=== PATIENT | female | born 1925 | race Caucasian/White ===

== ENCOUNTER 2017-02-06 08:44 | Observation (INO) | payer MEDICARE, BC ==
[~2017-02-06] VITALS: Ht 160 cm; Wt 63.1 kg
[~2017-02-06 08:44] MED LIST: ASPIRIN 325MG325 MG PO; ASPIRIN 81MG TA81 MG PO; CHEWABLE ASPIRI81 MG PO; CIPRO 500MG TA500 MG PO; CITALOPRAM HYDR10 MG PO; ESTRACE0.1 MG/GM VG; FERROUS GLUCON324 MG PO; FISH OIL1000 MG PO; FORTEO250 MCG/ML SC; GABAPENTIN100 M1 PO; GABAPENTIN100 MG PO; GABAPENTIN300 MG PO; HCTZ/TRIAMTEREN1 CAP PO; HYDROCHLOROTH12.5 M1 PO; HYDROCHLOROTHIA1 TA4 PO; HYDROCHLOROTHIA25 M1 PO; HYOSCYAMINE0.125 M1 SL; IMDUR 60MG. TAB60 MG PO; ISOSORBIDE MONO30 MG PO; LEVOFLOXACIN500 MG PO; LISINOPRIL5 MG PO; LOPRESSOR 25MG.25 M1 OR; LOPRESSOR 50 MG50 MG PO; MACRODANTIN100 MG PO; MAG-OX 400MG T400 MG PO; MAXZIDE 25 MG-31 TA1 PO; MAXZIDE 50 MG-71 TAB PO; METOLAZONE 2.52.5 MG PO; METOLAZONE2.5 MG PO; METOPROLOL 25 M25 MG PO; METOPROLOL25 MG PO; MORPHINE PUMP IP; NITROSTAT 0.4M0.4 MG SL; OMEGA-31000 MG PO; OMEPRAZOLE20 MG PO; ONDANSETRON 4MG4 M1 PO; ONDANSETRON HYDR4 MG PO; OXAZEPAM 10MG C10 MG PO; Oxycodone5 MG PO; PLAVIX75 MG PO; PREDNISONE 10MG10 MG PO; PREMARIN VAGINA VG; PROMETHAZINE HC25 M1 PO; SIMVASTATIN20 MG PO; TRANSDERM0.33 MG/24 TD; ZOFRAN ODT4 MG PO
[2017-02-06 08:45] VITALS: BP 150/68
--- NOTE | 2017-02-06 08:57 | Emergency Room Report ---
See Addendum History of Present Illness Time Seen by MD Talbot Presenting Problem in Triage Pt arrived:Ambulance Stretcher Presenting Problem:CHEST PAIN THIS MORNING WHILE [place] [facility] Onset of symptoms date/time:/ or onset unknown for:MEDICAL HX UNKNOWN Treatment Prior to Arrival: SL,ASA 324MG,12 LEAD ECG DEVELOPMENT TECHNICAL LEAD Provided by:EMS Sepsis Risk Assessment: Temp: 98.1 B/P: 150/68 MAP: 95 Pulse: 56 Resp: 20 Recent fever? N Clinical Suspician of Infection? N Mental Status: 1 - Regular (Normal Baseline) Sepsis Risk:Low Sepsis Risk Have you (or family members/close friends) recently traveled outside the [place]? N If Yes, where/when: Have you had exposure to infectious disease within the past month? TB? Other? Specify: Patient states she has chest pain onset this morning at retirement does not radiate anywhere she just describes it as a pain moderate in severity. She denies any cough denies any nausea or shortness of breath. She is wearing a neck collar she states she recently injured her neck. Denies any abdominal pain ALLERGIES Coded Allergies: egg (From EGGS (FOOD/DRUG)) (Intermediate, NA-NAUSEA 02/06/17) cephalexin (From KEFLEX) (02/06/17) codeine (02/06/17) soy (02/06/17) Home Medications Active Scripts MAGNESIUM OXIDE (Magnesium Oxide) 400 MG PO BID #60 Ref 2 Prov: 07/25/11 Reported Medications Nitroglycerin (Nitrostat 0.4MG (1/150 Gr) Tabs #25) 0.4 MG SL [id number] Lisinopril 2.5 MG PO DAILY OMEGA-3 FATTY ACIDS/FISH OIL (Fish Oil 1,000 MG Capsule) 1,000 MG PO DAILY ISOSORBIDE MONONITRATE (Isosorbide Mononitrate ER) 60 MG PO DAILY #30 Citalopram Hydrobromide (Citalopram HBr) 10 MG PO DAILY #30 TRIAMTERENE/HYDROCHLOROTHIAZID (Triamterene-Hctz 75-50 MG Tab) 0.5 TAB PO Q48H #15 Prednisone (Prednisone 10MG) 10 MG PO DAILY #30 Metolazone 2.5 MG PO Q48H #30 Estradiol (Estrace) 0.1 MG VG 3 TIMES/WK #43 Gabapentin (Gabapentin 100MG) 100 MG PO TID #90 Metoprolol Tartrate (Lopressor) 25 MG PO BID #30 History Medical History General CAD? Yes Angina: No CA: No Hypertension? Yes Hyperlipidemia? Yes CHF? No DVT? No PE? No COPD? No Asthma? No Anemia? No GERD? No Gastric ulcers? Yes GI Bleed? No Hernia? No Thyroid Problems? Yes Hypothyroidism? No CVA? Yes Seizures? No Diabetes? No Renal Insuffiency? No End Stage Renal Disease? No UTI? Yes Stones? No BPH? No GB Disease: Yes Nephritic Syndrome? No Asplenia? No Hepatitis? No Sickle Cell Disease? No Arthritis? Yes Migraines? No Cataracts? Yes Glaucoma? No MRSA? No HIV? No TB? No Anxiety? Yes Depression? Yes Cancer? No More? Yes Additional hx: 1. RHEUMATOID ARTHRITIS, 2. PARTIAL THYROIDECTOMY 3. LEFT BBB 4. DEGENERATIVE DISC DISEASE 5. SPINAL STENOSIS 6. PAIN PUMP Immunization Hx Ped.Immunizations UTD Yes DT/Tetanus Has Never Had Flu Refused Pneumonia Refuses Surgical Hx Previous Surgery?Y JUAN THYROID TUMOR SPINAL SURGERY PAIN PUMP PLACEMENT RIGHT KNEE REPLACEMENT CARDIAC STENT-2011 PACEMAKER ANNA LUMPECTOMY IN BREAST Family History Family Hx Diabetes Yes CAD No Hypertension No Hyperlipidemia Yes Cancer Yes TB No Social History Smoking Hx Smoker: Never Smoker Tobacco: No Type N/A Packs/day N/A Are you/the child exposed to second-hand smoke: No Alcohol Alcohol: No Review of Systems All Other Systems Reviewed and Negative Physical Exam Vital Signs Vital Signs Date Time Temp Pulse Resp B/P Pulse O2 O2 Flow FiO2 Ox Delivery Rate 02/06 1049 58 20 156/56 98 02/06 1018 55 20 149/49 98 02/06 0952 55 20 152/52 95 / 0926 55 20 159/67 94 02/06 0845 98.1 56 20 150/68 98 General Appearance: Nontoxic Head: Normocephalic, without obvious abnormality, atraumatic. Eyes: conjunctiva/corneas clear ENT: Mucous membranes moist. Neck: No jugular venous distention. Patient in cervical collar Cardiac: regular rate and rhythm Lungs: Clear to auscultation bilaterally Abdomen: Nontender, Nondistended, positive bowel sounds, no rebound : No CVA tenderness Extremities: no edema Musculoskeletal: No chest wall tenderness No Homans sign No calf tenderness No swelling in legs Skin: No rashes or lesions to exposed skin. Neurologic: Alert. No gross focal deficits Psychiatric: Normal affect (Elizabeth LUBIN, Sergo) General Appearance normal appearance Respiratory Status No: respiratory distress. Cardiovascular normal exam Neurologic alert Medical Decision Making LABS/Meds/Orders Pt receiving controlled substance in ED? No Comment 1144 CT PE no PE, no acute dz per radiologist, call out to Thanh Results/Orders Laboratory Tests 02/06/17 0850: B-Natriuretic Peptide 177 H 02/06/17 0850: Sodium 138, Potassium 4.2, Chloride 100, Carbon Dioxide 32, BUN 30 H, Creatinine 1.1 H, Estimated Creat Clear 32 L, Estimated GFR (MDRD) 47 L, Glucose 95, Calcium 9.5, Total Bilirubin 0.7, AST 15, ALT 25, Alkaline Phosphatase 66, Creatine Kinase 53, CK-MB (CK-2) Rel Index 4.2 H, CK and CKMB Interp 2.2, Troponin I < 0.02, Total Protein 7.1, Albumin 3.6, Globulin 3.5 H, Albumin/Globulin Ratio 1.0 L, D-Dimer 955 *H, WBC 8.4, RBC 4.92, Hgb 15.0, Hct 47.1 H, MCV 95.6, RDW 13.1, Plt Count 260, MPV 6.3 L, Gran % 56.9, Gran # 4.8, Lymphocytes % 35.3, Monocytes % 5.8, Eosinophils % 1.7, Basophils % 0.4, Lymphocytes # 3.0, Monocytes # 0.5, Eosinophils # 0.1, Basophils # 0.0, PUBS MCHC 31.8, MCH 30.4 Current Medication Orders Sig/Blas Start time Last Medication Dose Route Stop Time Status Admin Iopamidol 60 ML ONCE ONE 02/06 1130 DC 02/06 IV 02/06 1131 1122 Sodium Chloride 10 ML PRN PRN 02/06 1130 AC 02/06 IV 02/06 1251 1122 Sodium Chloride 20 ML ONCE ONE 02/06 1130 DC / IV 02/06 1131 1122 Sodium Chloride 20 ML ONCE ONE 02/06 1130 DC / IV 02/06 1131 1122 Nitroglycerin 0.4 MG [id number] PRN 02/06 0900 AC SL Sodium Chloride 10 ML PRN PRN 02/06 0900 AC IV 02/07 0854 Orders Procedure Date/time Status DIET-NOTHING BY MOUTH 02/[address] CHEST W/PE PROTOCOL REQ 02/06 1013 Complete D-DIMER 02/07 0858 Complete BRAIN NATRIURETIC PEPTIDE 02/07 0858 Complete ELECTROCARDIOGRAM REQUEST 02/06 0855 Active IV SALINE LOCK 02/06 855 Active SPLUNK ARCHITECT 02/06 855 Active CBC WITH AUTO DIFF 02/06 855 Complete CARDIAC ENZYMES 02/06 855 Complete CHEM 12 PROFILE 02/06 08 Complete 12 LEAD EKG-BESSON (INITIAL) 02/06 UNK Active CM/EKG CM/painter airbrush Rhythm Paced Rhythm Rate 55 Ectopy No Comments Paced rhythm with capture LEFT bundle branch block,lad, nonspecific electrocardiogram with capture Departure Departure Time of Disposition 1146 Disposition Still a Patient Clinical Impression Primary Impression: Chest pain Qualifiers: Chest pain type: unspecified Qualified Code: R07.9 - Chest pain, unspecified Condition STABLE Referrals Thanh LUBIN,Don Castellanos (Family) ED Critical Care Critical Care No at 1147
--- NOTE | 2017-02-06 08:57 | Emergency Room Report ---
See Addendum History of Present Illness Time Seen by MD Talbot Presenting Problem in Triage Pt arrived:Ambulance Stretcher Presenting Problem:CHEST PAIN THIS MORNING WHILE AT [facility] [place] Onset of symptoms date/time:/ or onset unknown for:MEDICAL HX UNKNOWN Treatment Prior to Arrival: SL,ASA 324MG,12 LEAD ECG REDYE HAND Provided by:EMS Sepsis Risk Assessment: Temp: 98.1 B/P: 150/68 MAP: 95 Pulse: 56 Resp: 20 Recent fever? N Clinical Suspician of Infection? N Mental Status: 1 - Regular (Normal Baseline) Sepsis Risk:Low Sepsis Risk Have you (or family members/close friends) recently traveled outside the [place]? N If Yes, where/when: Have you had exposure to infectious disease within the past month? TB? Other? Specify: Patient states she has chest pain onset this morning at halfway does not radiate anywhere she just describes it as a pain moderate in severity. She denies any cough denies any nausea or shortness of breath. She is wearing a neck collar she states she recently injured her neck. Denies any abdominal pain ALLERGIES Coded Allergies: egg (From EGGS (FOOD/DRUG)) (Intermediate, NA-NAUSEA 02/06/17) cephalexin (From KEFLEX) (02/06/17) codeine (02/06/17) soy (02/06/17) Home Medications Active Scripts MAGNESIUM OXIDE (Magnesium Oxide) 400 MG PO BID #60 Ref 2 Prov: 07/25/11 Reported Medications Nitroglycerin (Nitrostat 0.4MG (1/150 Gr) Tabs #25) 0.4 MG SL [id number] Lisinopril 2.5 MG PO DAILY OMEGA-3 FATTY ACIDS/FISH OIL (Fish Oil 1,000 MG Capsule) 1,000 MG PO DAILY ISOSORBIDE MONONITRATE (Isosorbide Mononitrate ER) 60 MG PO DAILY #30 Citalopram Hydrobromide (Citalopram HBr) 10 MG PO DAILY #30 TRIAMTERENE/HYDROCHLOROTHIAZID (Triamterene-Hctz 75-50 MG Tab) 0.5 TAB PO Q48H #15 Prednisone (Prednisone 10MG) 10 MG PO DAILY #30 Metolazone 2.5 MG PO Q48H #30 Estradiol (Estrace) 0.1 MG VG 3 TIMES/WK #43 Gabapentin (Gabapentin 100MG) 100 MG PO TID #90 Metoprolol Tartrate (Lopressor) 25 MG PO BID #30 History Medical History General CAD? Yes Angina: No ME: No Hypertension? Yes Hyperlipidemia? Yes CHF? No DVT? No PE? No COPD? No Asthma? No Anemia? No GERD? No Gastric ulcers? Yes GI Bleed? No Hernia? No Thyroid Problems? Yes Hypothyroidism? No CVA? Yes Seizures? No Diabetes? No Renal Insuffiency? No End Stage Renal Disease? No UTI? Yes Stones? No BPH? No GB Disease: Yes Nephritic Syndrome? No Asplenia? No Hepatitis? No Sickle Cell Disease? No Arthritis? Yes Migraines? No Cataracts? Yes Glaucoma? No MRSA? No HIV? No TB? No Anxiety? Yes Depression? Yes Cancer? No More? Yes Additional hx: 1. RHEUMATOID ARTHRITIS, 2. PARTIAL THYROIDECTOMY 3. LEFT BBB 4. DEGENERATIVE DISC DISEASE 5. SPINAL STENOSIS 6. PAIN PUMP Immunization Hx Ped.Immunizations UTD Yes DT/Tetanus Has Never Had Flu Refused Pneumonia Refuses Surgical Hx Previous Surgery?Y JUAN THYROID TUMOR SPINAL SURGERY PAIN PUMP PLACEMENT RIGHT KNEE REPLACEMENT CARDIAC STENT-2011 PACEMAKER ANNA LUMPECTOMY IN BREAST Family History Family Hx Diabetes Yes CAD No Hypertension No Hyperlipidemia Yes Cancer Yes TB No Social History Smoking Hx Smoker: Never Smoker Tobacco: No Type N/A Packs/day N/A Are you/the child exposed to second-hand smoke: No Alcohol Alcohol: No Review of Systems All Other Systems Reviewed and Negative Physical Exam Vital Signs Vital Signs Date Time Temp Pulse Resp B/P Pulse O2 O2 Flow FiO2 Ox Delivery Rate 02/06 1049 58 20 156/56 98 02/06 1018 55 20 149/49 98 02/06 0952 55 20 152/52 95 / 0926 55 20 159/67 94 02/06 0845 98.1 56 20 150/68 98 General Appearance: Nontoxic Head: Normocephalic, without obvious abnormality, atraumatic. Eyes: conjunctiva/corneas clear ENT: Mucous membranes moist. Neck: No jugular venous distention. Patient in cervical collar Cardiac: regular rate and rhythm Lungs: Clear to auscultation bilaterally Abdomen: Nontender, Nondistended, positive bowel sounds, no rebound : No CVA tenderness Extremities: no edema Musculoskeletal: No chest wall tenderness No Homans sign No calf tenderness No swelling in legs Skin: No rashes or lesions to exposed skin. Neurologic: Alert. No gross focal deficits Psychiatric: Normal affect (Elizabeth LUBIN, Sergo) General Appearance normal appearance Respiratory Status No: respiratory distress. Cardiovascular normal exam Neurologic alert Medical Decision Making LABS/Meds/Orders Pt receiving controlled substance in ED? No Comment 1144 CT PE no PE, no acute dz per radiologist, call out to Thanh Results/Orders Laboratory Tests 02/06/17 0850: B-Natriuretic Peptide 177 H 02/06/17 0850: Sodium 138, Potassium 4.2, Chloride 100, Carbon Dioxide 32, BUN 30 H, Creatinine 1.1 H, Estimated Creat Clear 32 L, Estimated GFR (MDRD) 47 L, Glucose 95, Calcium 9.5, Total Bilirubin 0.7, AST 15, ALT 25, Alkaline Phosphatase 66, Creatine Kinase 53, CK-MB (CK-2) Rel Index 4.2 H, CK and CKMB Interp 2.2, Troponin I < 0.02, Total Protein 7.1, Albumin 3.6, Globulin 3.5 H, Albumin/Globulin Ratio 1.0 L, D-Dimer 955 *H, WBC 8.4, RBC 4.92, Hgb 15.0, Hct 47.1 H, MCV 95.6, RDW 13.1, Plt Count 260, MPV 6.3 L, Gran % 56.9, Gran # 4.8, Lymphocytes % 35.3, Monocytes % 5.8, Eosinophils % 1.7, Basophils % 0.4, Lymphocytes # 3.0, Monocytes # 0.5, Eosinophils # 0.1, Basophils # 0.0, PUBS MCHC 31.8, MCH 30.4 Current Medication Orders Sig/Blas Start time Last Medication Dose Route Stop Time Status Admin Iopamidol 60 ML ONCE ONE 02/06 1130 DC 02/06 IV 02/06 1131 1122 Sodium Chloride 10 ML PRN PRN 02/06 1130 AC 02/06 IV 02/06 1251 1122 Sodium Chloride 20 ML ONCE ONE 02/06 1130 DC / IV 02/06 1131 1122 Sodium Chloride 20 ML ONCE ONE 02/06 1130 DC / IV 02/06 1131 1122 Nitroglycerin 0.4 MG [id number] PRN 02/06 0900 AC SL Sodium Chloride 10 ML PRN PRN 02/06 0900 AC IV 02/07 0854 Orders Procedure Date/time Status DIET-NOTHING BY MOUTH 02/[address] CHEST W/PE PROTOCOL REQ 02/06 1013 Complete D-DIMER 02/07 0858 Complete BRAIN NATRIURETIC PEPTIDE 02/07 0858 Complete ELECTROCARDIOGRAM REQUEST 02/06 0855 Active IV SALINE LOCK 02/06 855 Active CAR AUDIO INSTALLER 02/06 855 Active CBC WITH AUTO DIFF 02/06 855 Complete CARDIAC ENZYMES 02/06 855 Complete CHEM 12 PROFILE 02/06 08 Complete 12 LEAD EKG-BESSON (INITIAL) 02/06 UNK Active CM/EKG CM/computer systems support specialist Rhythm Paced Rhythm Rate 55 Ectopy No Comments Paced rhythm with capture LEFT bundle branch block,lad, nonspecific electrocardiogram with capture Departure Departure Time of Disposition 1146 Disposition Still a Patient Clinical Impression Primary Impression: Chest pain Qualifiers: Chest pain type: unspecified Qualified Code: R07.9 - Chest pain, unspecified Condition STABLE Referrals Thanh LUBIN,Don Castellanos (Family) ED Critical Care Critical Care No at 1147
--- OUTSIDE RECORDS SUMMARY | 2017-02-06 08:57 | External Medical Summary Rpt ---
Author Author KYLEMATTIE Murdock, [employer] Organization [employer] Address Unknown Phone Unavailable Results Glucose [Mass/volume] in Capillary blood by Glucometer Observa Value Referen Units Interpr Notes Date tion ce etation Range Glucose 70 - 110 mg/dl High No January 25 [Mass/vol informati 2016 6:11 ume] in on in AM Capillary source blood by data Glucomete r Basic metabolic panel in Blood Observa Value Referen Units Interpr Notes Date tion ce etation Range Urea 7 - 18 mg/dL High No January 25 nitrogen informati 2016 5:32 [Mass/vol on in AM ume] in source Serum or data Plasma Calcium 8.5 - mg/dL Low No January 25 [Mass/vol 10.1 informati 2016 5:32 ume] in on in AM Serum or source Plasma data Chloride 98 - 107 mmoL/L High No January 25 [Moles/vo informati 2016 5:32 lume] in on in AM Serum or source Plasma data Carbon 21.0 - mmoL/L Normal No January 25 dioxide, 32.0 informati 2016 5:32 total on in AM [Moles/vo source lume] in data Serum or Plasma Creatinin 0.55 - mg/dL High No January 25 e 1.02 informati 2016 5:32 [Mass/vol on in AM ume] in source Serum or data Plasma Creatinin 50 - 200 ML/MIN Low No January 25 e renal informati 2016 5:32 clearance on in AM source predicted data by Cockcroft -Gault formula Estimated 59- ML/MIN Low REFERENCE January 25 RANGE: 2017 5:32 glomerula >60 AM r ML/MIN/1. filtratio 73 SQUARE n rate METERSIf (GF this patient is -A merican, then multiply theresult by 1.210. Glucose 74 - 106 mg/dL High No January 25 [Mass/vol informati 2016 5:32 ume] in on in AM Serum or source Plasma data Potassium 3.5 - 5.1 mmoL/L Normal No January 25 informati 2016 5:32 [Moles/vo on in AM lume] in source Serum or data Plasma Sodium 136 - 145 mmoL/L Normal No January 25 [Moles/vo informati 2016 5:32 lume] in on in AM Serum or source Plasma data CBC W Auto Differential panel in Blood Observa Value Referen Units Interpr Notes Date tion ce etation Range Basophils 0 - 0.2 K/MM3 Normal No January 25 informati 2016 5:32 [#/volume on in AM ] in source Blood by data Automated count Basophils 0.1 - 2.0 % Normal No January 25 informati 2016 5:32 leukocyte on in AM s in source Blood by data Automated count Eosinophi 0.0 - 0.4 K/mm3 Normal No January 25 ls informati 2016 5:32 [#/volume on in AM ] in source Blood by data Automated count Eosinophi 0.1 - % Normal No January 25 ls/100 12.0 informati 2016 5:32 leukocyte on in AM s in source Blood by data Automated count Granulocy 1.8 - 7.8 K/mm3 Normal No January 25 yodit informati 2016 5:32 [#/volume on in AM ] in source Blood by data Automated count Granulocy 37.0 - % Normal No January 25 yodit/100 80.0 informati 2016 5:32 leukocyte on in AM s in source Blood by data Automated count Hematocri 37.0 - % Normal No January 25 t [Volume 47.0 informati 2016 5:32 on in AM Fraction] source of Blood data Hemoglobi 12.2 - g/dL Normal No January 25 n 16.2 informati 2016 5:32 [Mass/vol on in AM ume] in source Blood data Lymphocyt 0.7 - 4.5 K/mm3 Normal No January 25 es informati 2016 5:32 [#/volume on in AM ] in source Unspecifi data ed specimen by Automated count Lymphocyt 10 - 50.0 % Normal No January 25 es informati 2016 5:32 [#/volume on in AM ] in source Unspecifi data ed specimen by Automated count Erythrocy 27 - 31.2 pg Normal No January 25 te mean informati 2016 5:32 corpuscul on in AM ar source hemoglobi data n [Entitic mass] Erythrocy 31.8 - g/dl Normal No January 25 te mean 35.4 informati 2016 5:32 corpuscul on in AM ar source hemoglobi data n concentra tion [Mass/vol ume] by Automated count Erythrocy 82.2 - fl Normal No January 25 te mean 97.8 informati 2016 5:32 corpuscul on in AM ar volume source [Entitic data volume] by Automated count Monocytes 0.1 - 1.0 K/mm3 Normal No January 252016 5:32 [#/volume on in AM ] in source Blood by data Automated count Monocytes 1.7 - 9.3 % Normal No January 25 / informati 2016 5:32 leukocyte on in AM s in source Blood by data Automated count Platelet 7.4 - fl Low No January 25 mean 10.4 informati 2016 5:32 volume on in AM [Entitic source volume] data in Blood by Automated count Platelets 142 - 424 K/mm3 Normal No January 252016 5:32 [#/volume on in AM ] in source Blood data Erythrocy 4.2 - 5.4 M/mm3 Normal No January 25 yodit informati 2016 5:32 [#/volume on in AM ] in source Amniotic data fluid Erythrocy 11.5 - % Normal No January 25 te 17.5 informati 2016 5:32 distribut on in AM ion width source [Entitic data volume] by Automated count Leukocyte 4.8 - K/MM3 Normal No January 25 s 10.8 informati 2016 5:32 [#/volume on in AM ] in source Blood data Glucose [Mass/volume] in Capillary blood by Glucometer Observa Value Referen Units Interpr Notes Date ti ce etation Range Glucose 70 - 110 mg/dl Normal No January 24 [Mass/vol informati 2016 ume] in on in 10:03 PM Capillary source blood by data Glucomete r Urinalysis dipstick W Reflex Microscopic panel in Urine Observa Value Referen Units Interpr Notes Date ti ce etation Range Appeara CLEAR CLEAR No No No January 21 nce of informa informa informa 2016 Urine tion in tion in tion in 6:30 PM source source source data data data Bacteri TRACE O No No No January 21 a informa informa informa 2016 [Presen tion in tion in tion in 6:30 PM ce] in source source source Urine data data data sedimen t by Light microsc opy Bilirub NEGATIV NEG No No No January 21 in E informa informa informa 2016 [Presen tion in tion in tion in 6:30 PM ce] in source source source Urine data data data by Test strip Erythro TRACE-I NEG No No No January 21 cytes NTACT informa informa informa 2016 [Presen tion in tion in tion in 6:30 PM ce] in source source source Urine data data data Color YELLOW YELLOW No No No January 21 of informa informa informa 2017 Urine tion in tion in tion in 6:30 PM source source source data data data Glucose NEG No No No January 21 [Mass/vol informati informati informati 2016 6:30 ume] in on in on in on in PM Urine by source source source Test data data data strip Ketones NEGATIV NEG mg/dL No No January 21 E informa informa 2016 [Presen tion in tion in 6:30 PM ce] in source source Urine data data by Automat ed test strip Mucus NEGATIV NEG No No No January 21 [Presen E informa informa informa 2016 ce] in tion in tion in tion in 6:30 PM Urine source source source sedimen data data data t by Light microsc opy Nitrite NEGATIV NEG No No No January 21 E informa informa informa 2016 [Presen tion in tion in tion in 6:30 PM ce] in source source source Urine data data data by Test strip pH of 5.0 - 8.5 No Normal No January 21 Urine informati informati 2017 6:30 on in on in PM source source data data Protein NEG mg/dL No No January 21 [Mass/vol informati informati 2016 6:30 ume] in on in on in PM Urine by source source Automated data data test strip Erythro OCC 0 rbc/hpf No No January 21 cytes informa informa 2016 [Presen tion in tion in 6:30 PM ce] in source source Urine data data sedimen t by Light microsc opy Specific 1.005 - No Normal No January 21 gravity 1.030 informati informati 2017 6:30 of Urine on in on in PM source source data data Epithel OCC 0 - 5 #/hpf No No January 21 ial informa informa 2017 cells.s tion in tion in 6:30 PM quamous source source data data [Presen ce] in Urine sedimen t by Microsc opy high power field Urobili 0.2 NEG E.U./dL No No January 21 nogen informa informa 2016 [Presen tion in tion in 6:30 PM ce] in source source Urine data data by Test strip Leukocyte O wbc/hpf No No January 21 s informati informati 2016 6:30 [#/volume on in on in PM ] in source source Urine data data Urinalysis dipstick W Reflex Microscopic panel in Urine Observa Value Referen Units Interpr Notes Date tion ce etation Range Appeara CLEAR CLEAR No No No January 21 nce of informa informa informa 2016 Urine tion in tion in tion in 6:30 PM source source source data data data Bilirub NEGATIV NEG No No No January 21 in E informa informa informa 2016 [Presen tion in tion in tion in 6:30 PM ce] in source source source Urine data data data by Test strip Erythro TRACE-I NEG No No No January 21 cytes NTACT informa informa informa 2016 [Presen tion in tion in tion in 6:30 PM ce] in source source source Urine data data data Color YELLOW YELLOW No No No January 21 of informa informa informa 2016 Urine tion in tion in tion in 6:30 PM source source source data data data Glucose NEG No No No January 21 [Mass/vol informati informati informati 2016 6:30 ume] in on in on in on in PM Urine by source source source Test data data data strip Ketones NEGATIV NEG mg/dL No No January 21 E informa informa 2016 [Presen tion in tion in 6:30 PM ce] in source source Urine data data by Automat ed test strip Mucus NEGATIV NEG No No No January 21 [Presen E informa informa informa 2016 ce] in tion in tion in tion in 6:30 PM Urine source source source sedimen data data data t by Light microsc opy Nitrite NEGATIV NEG No No No January 21 E informa informa informa 2016 [Presen tion in tion in tion in 6:30 PM ce] in source source source Urine data data data by Test strip pH of 5.0 - 8.5 No Normal No January 21 Urine informati informati 2016 6:30 on in on in PM source source data data Protein NEG mg/dL No No January 21 [Mass/vol informati informati 2016 6:30 ume] in on in on in PM Urine by source source Automated data data test strip Specific 1.005 - No Normal No January 21 gravity 1.030 informati informati 2016 6:30 of Urine on in on in PM source source data data Urobili 0.2 NEG E.U./dL No No January 21 nogen informa informa 2016 [Presen tion in tion in 6:30 PM ce] in source source Urine data data by Test strip PAIN MGMT DRUG SCREEN Observa Value Referen Units Interpr Notes Date tion ce etation Range TRICYCL NEG NEGATIV No Normal No Mar 24 IC (<300 E informa informa 2015 ANTIDEP ng/mL) tion in tion in 2:53 PM RESSANT source source S data data BARBITU NEG NEGATIV No Normal No Mar 24 RATES (<200 E informa informa 2015 ng/mL) tion in tion in 2:53 PM source source data data METHADO NEG NEGATIV No Normal No Mar 24 NE (<200 E informa informa 2015 ng/mL) tion in tion in 2:53 PM source source data data BENZODI NEG NEGATIV No Normal No Mar 24 AZEPINE (<150 E informa informa 2015 S ng/mL) tion in tion in 2:53 PM source source data data THC NEG NEGATIV No Normal No Mar 24 (MARIJU (<50 E informa informa 2015 KYRIE) ng/mL) tion in tion in 2:53 PM source source data data OPIATES POSITIV NEGATIV No Abnorma THRESHO Mar 24 E E informa l LD 2014 tion in LIMIT 2:53 PM source IS 100 data ng/mL AMPHETA NEG NEGATIV No Normal No Mar 24 MINES (<500 E informa informa 2015 ng/mL) tion in tion in 2:53 PM source source data data COCAINE NEG NEGATIV No Normal No Mar 24 (<150 E informa informa 2015 ng/mL) tion in tion in 2:53 PM source source data data PHENCYC NEG NEGATIV No Normal No Mar 24 LIDINE (<25 E informa informa 2015 ng/mL) tion in tion in 2:53 PM source source data data PROPOXY NEG NEGATIV No Normal No Mar 24 PHENE (<300 E informa informa 2015 ng/mL) tion in tion in 2:53 PM source source data data METHAMP NEG NEGATIV No Normal No Mar 24 HETAMIN (<500 E informa informa 2015 E ng/mL) tion in tion in 2:53 PM source source data data OXYCODO NEG NEGATIV No Normal No Mar 24 NE (<100 E informa informa 2014 ng/mL) tion in tion in 2:53 PM source source data data BUPRENO NEG NEGATIV No Normal No Mar 24 RPHINE (<10 E informa informa 2015 ng/mL) tion in tion in 2:53 PM source source data data
--- OUTSIDE RECORDS SUMMARY | 2017-02-06 08:57 | External Medical Summary Rpt ---
Demographics Preferred Language Burkinan Marital Status Unknown Shinto Affiliation Unknown Race Unknown Ethnic Group Unknown Author Author , Organization [employer] Address Unknown Phone Unavailable Purpose Continuity of Care Document - through 2016 Immunization No patient found.
--- OUTSIDE RECORDS SUMMARY | 2017-02-06 08:57 | External Medical Summary Rpt ---
Demographics Preferred Language Ivorian Marital Status Unknown Temple Affiliation Unknown Race Unknown Ethnic Group Unknown Author Author , Organization [employer] Address Unknown Phone Unavailable Purpose Continuity of Care Document - through 2016 Immunization No patient found.
--- OUTSIDE RECORDS SUMMARY | 2017-02-06 08:57 | External Medical Summary Rpt ---
Author Author , Organization [employer] Address Unknown Phone Unavailable Care Team Providers Care Instrument Fitter Name Role Phone Sonny Law MD, Unavailable Unavailable Sonny Law MD Purpose Continuity of Care Document - 12-16-2012 through 2016 Problems Code Diagnosis DOS Provider Status I10 Essential 01-29-2017 (primary) hypertensio n I48.91 Unspecified 01-29-2017 atrial fibrillatio n M06.9 Rheumatoid 01-29-2017 arthritis, unspecified M54.2 Cervicalgia 01-29-2017 S12.110A Anterior 01-29-2017 displaced Type II dens fracture, initial encounter for closed fracture W19.XXXA Unspecified 01-29-2017 fall, initial encounter 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), and cerebral infarction without residual deficits Z87.39 Personal 01-29-2017 history of other diseases of the musculoskel etal system and connective tissue Z95.0 Presence of 01-29-2017 cardiac pacemaker 285.[address] [facility] 578.9 [facility] hemorrhage [id number] Cholelithia [facility] obstruction E16.2 HYPOGLYCEMI A, UNSPECIFIED E86.0 DEHYDRATION I44.7 LEFT BUNDLE-BRAN CH BLOCK, UNSPECIFIED K56.41 FECAL IMPACTION K82.9 DISEASE OF GALLBLADDER , UNSPECIFIED M54.9 DORSALGIA, UNSPECIFIED N28.9 DISORDER OF KIDNEY AND URETER, UNSPECIFIED N39.0 URINARY TRACT INFECTION, SITE NOT SPECIFIED R07.9 CHEST PAIN, UNSPECIFIED R79.89 OTHER SPECIFIED ABNORMAL FINDINGS OF BLOOD CHEMISTRY S10.93XA CONTUSION OF UNSPECIFIED PART OF NECK, INITIAL ENCOUNTER S12.000A UNSP DISP FX OF FIRST CERVICAL VERTEBRA, INIT FOR CLOS FX S12.100A UNSP DISP FX OF SECOND CERVICAL VERTEBRA, INIT FOR CLOS FX Allergies, Adverse Reactions, Alerts Type Drug Allergy Food Allergy Adverse Reaction to Substance Substance Reaction Severity Cephalexin "BLACKED Intermediate OUT,PAIN,DECR VISION" Codeine NA-NAUSEA Unknown SOY NA-NAUSEA Mild EGGS (FOOD) NA-NAUSEA Unknown Medications Na ND Rx Da Fi Fi Am Da Di Ph RX Ph St me C No te ll ll ou ys ag ar # ys at rm s nt no ma ic us Or Da si cy ia de te s n re d As 51 04 0 No pi 07 -1 ri 90 6- Lo n 00 20 ng 32 52 13 er 5M 0 G Ac Ta ti bl ve et Ni 00 04 0 No tr 08 -1 og 81 6- Lo ly 55 20 ng ce 24 13 er ri 9 n Ac 1 ti In ve ch Oi nt Ud p Vital Signs 12-16-2012 14:39 Name Value Interpretat Reference Comment ion Range Body 98.0 [degF] Temperature BP 72 mm[Hg] Diastolic BP Systolic 180 mm[Hg] Heart 117 /min Rate/Pulse O2% 98 % Respiratory 18 /min Rate 12-16-2012 14:03 Name Value Interpretat Reference Comment ion Range Body 98.6 [degF] Temperature 12-16-2012 13:36 Name Value Interpretat Reference Comment ion Range BP 63 mm[Hg] Diastolic BP Systolic 166 mm[Hg] Heart 119 /min Rate/Pulse O2% 99 % Respiratory 19 /min Rate Results Labs Lab Lab Date Result Refere Interp Status Commen Order Detail nces retati t Range on COMPREHENSIVE METABOLIC PANEL (12-16-2012 13:15) Glucose 93 74-106 complet 013 mg/dL ed Bld-mCn 13:15 c BUN 20 7-18 complet Bld-mCn 013 mg/dL ed c 13:15 Creat 1.2 0.6-1.0 complet SerPl-m 013 mg/dL ed Cnc 13:15 ESTIMAT 36 50-200 complet ED 013 ML/MIN ed CREATIN 13:15 INE CLEARAN CE GFR 43 59- complet (ESTIMA 013 ML/MIN ed RIANNA) 13:15 Sodium 142 136-145 complet SerPl-s 013 mmoL/L ed Cnc 13:15 Potassi 4.3 3.5-5.1 complet um 013 mmoL/L ed SerPl-s 13:15 Cnc Chlorid 12-16- 105 98-107 complet e 013 mmoL/L ed SerPl-s 13:15 Cnc CO2 16-2 29 21.0-32 complet SerPl-s 013 mmoL/L .0 ed Cnc 13:15 Calcium 12-16- 9.2 8.5-10. complet 013 mg/dL 1 ed SerPl-m 13:15 Cnc Prot 16-2 7.2 6.4-8.2 complet SerPl-m 013 gm/dL ed Cnc 13:15 Albumin 16-2 3.8 3.4-5.0 complet 013 gm/dL ed SerPl-m 13:15 Cnc Globuli 12-16- 3.4 1.3-3.2 complet n 013 gm/dL ed Ser-mCn 13:15 c Albumin 1.1 UNK 1.1-1.8 complet /Glob 013 ed SerPl-m 13:15 Rto Bilirub 0.6 0.2-1.0 complet 013 mg/dL ed SerPl-m 13:15 Cnc AST 16-2 21 U/L 15-37 complet SerPl-c 013 ed Cnc 13:15 ALT 16-2 34 U/L 30-65 complet SerPl-c 013 ed Cnc 13:15 ALP 16-2 91 U/L 50-136 complet SerPl-c 013 ed Cnc 13:15 CBC with AUTO DIFF (12-16-2012 13:15) WBC # -16-2 7.7 4.8-10. complet Bld 013 K/MM3 8 ed Auto 13:15 RBC # 16-2 4.62 4.2-5.4 complet Bld 013 M/mm3 ed Auto 13:15 Hgb 16-2 14.3 12.2-16 complet Bld-mCn 013 g/dL .2 ed c 13:15 Hct Fr 16-2 44.2 % 37.0-47 complet Bld 013 .0 ed 13:15 MCV RBC 16-2 95.6 fl 82.2-97 complet 013 .8 ed 13:15 MCH RBC 16-2 30.9 pg 27-31.2 complet Qn 013 ed Auto 13:15 MEAN 16-2 32.4 31.8-35 complet CORPUSC 013 g/dl .4 ed ULAR 13:15 HGB CONC RDW RBC 16-2 13.2 % 11.5-17 complet Auto 013 .5 ed 13:15 Platele 16-2 234 142-424 complet t Bld 013 K/mm3 ed Ql 13:15 Manual MEAN 16-2 7.0 fl 7.4-10. complet PLATELE 013 4 ed T 13:15 VOLUME Granulo -16-2 64.9 % 37.0-80 complet cytes 013 .0 ed Fr Bld 13:15 Auto LYMPH % 16-2 29.2 % 10-50.0 complet 013 ed 13:15 Monocyt 16-2 3.6 % 1.7-9.3 complet es Fr 013 ed Bld 13:15 Auto Eosinop -16-2 1.8 % 0.1-12. complet hil Fr 013 0 ed Bld 13:15 Auto Basophi -16-2 0.4 % 0.1-2.0 complet ls Fr 013 ed Bld 13:15 Auto Granulo -16-2 5.0 1.8-7.8 complet cytes # 013 K/mm3 ed Bld 13:15 Auto Lymphoc -16-2 2.3 0.7-4.5 complet ytes Fr 013 K/mm3 ed Bld 13:15 Auto Monocyt -16-2 0.3 0.1-1.0 complet es # 013 K/mm3 ed Bld 13:15 Auto Eosinop -16-2 0.1 0.0-0.4 complet hil # 013 K/mm3 ed Bld 13:15 Auto Basophi 04-16-2 0.0 0-0.2 complet ls # 013 K/MM3 ed Bld 13:15 Auto Encounters Encounter Start End Date Code Location Performer Type Date Emergency CHERELLE Sawyer MD (ER) 3 13:43 3 15:02 [facility]
--- OUTSIDE RECORDS SUMMARY | 2017-02-06 08:57 | External Medical Summary Rpt ---
Author Author , Organization [employer] Address Unknown Phone Unavailable Care Team Providers Care Radiology Physician Name Role Phone Sonny Law MD, Unavailable [...] Presence of 01-29-2017 cardiac pacemaker 285.9 Anemia [facility] 578.9 [facility] hemorrhage [phone] Cholelithia [facility] obstruction E16.2 HYPOGLYCEMI A, UNSPECIFIED E86.0 DEHYDRATION [...] Sawyer MD (ER) 3 13:43 3 15:[address] [facility]
[2017-02-06 08:58] LABS: LYMPH % 35.3 % (10-50.0)
[2017-02-06 09:37] LABS: BUN 30 mg/dL (7-18); GFR (ESTIMATED) 47 ML/MIN (59-)
--- NOTE | 2017-02-06 10:08 | RADIOLOGY REPORT PS360 ---
CHEST-PORTABLE HISTORY: Chest pain CP ORDERING PHYSICIAN: Sergo Johnson MD PATIENT AGE: 89 years COMPARISON: 12/06/2016 FINDINGS: Borderline cardiomegaly without failure. Dual-chamber pacemaker present unchanged.. The lungs are clear without infiltrates, suspicious nodules, or pleural effusions. No acute bony abnormalities. Elevated right hemidiaphragm as before. IMPRESSION: Cardiomegaly with pacemaker present. No change with no acute finding
--- NOTE | 2017-02-06 11:42 | RADIOLOGY REPORT PS360 ---
CTA-CHEST HISTORY: Chest pain with elevated d-dimer CHEST PAIN, ELEV D DIMER ORDERING PHYSICIAN: Sergo Johnson MD PATIENT AGE: 89 years TECHNIQUE: Helical acquisition obtained following the bolus administration of 60 mL of Isovue 370 followed by a saline bolus. Axial, sagittal, and coronal reformatted images are generated and reviewed. COMPARISON: None FINDINGS: No evidence of pulmonary embolus or aortic aneurysm. Atherosclerotic changes involve the thoracic aorta with elongation and tortuosity of the thoracic aorta and mild atheromatous changes. No obvious aneurysmal dilatation. There are coronary artery calcifications. Normal heart size. No obvious pericardial effusion. There is a small hiatal hernia. There is hyperinflation with attenuation of the peripheral pulmonary vessels consistent with COPD. There are mild atelectatic or fibrotic changes in the lung bases. No lobar consolidation or collapse and no suspicious pulmonary nodules apparent. There are degenerative changes of the thoracic spine. There is mild chronic wedging of T12. Upper abdominal images show prior cholecystectomy. IMPRESSION: 1. No evidence of pulmonary embolus or aortic aneurysm. 2. COPD. No acute finding. 3. Small hiatal hernia. 4. Coronary artery disease
--- OUTSIDE RECORDS SUMMARY | 2017-02-06 12:06 | External Medical Summary Rpt ---
Author Author , Organization [employer] Address Unknown Phone Unavailable Care Team Providers Care Crown Ceramist Name Role Phone Sonny Law MD, Unavailable [...] Presence of 01-29-2017 cardiac pacemaker 285.9 Anemia [facility] 578.9 Upper [facility] hemorrhage [id number] Cholelithia Hurley sis without [facility] obstruction Allergies, Adverse Reactions, Alerts Type Drug Allergy [...] d As 51 04 0 No pi ri 90 6- Lo n 00 20 [...] 013 mmoL/L ed SerPl-s 13:15 Cnc Chlorid 105 98-107 complet e 013 mmoL/L ed SerPl-s 13:15 Cnc CO2 29 21.0-32 complet SerPl-s 013 mmoL/L .0 ed Cnc 13:15 Calcium 9.2 8.5-10. complet 013 mg/dL 1 ed SerPl-m 13:15 Cnc Prot 7.2 6.4-8.2 complet SerPl-m 013 gm/dL ed Cnc 13:15 Albumin 3.8 3.4-5.0 complet 013 gm/dL ed SerPl-m 13:15 Cnc Globuli 16-2 3.4 1.3-3.2 complet n 013 gm/dL ed Ser-mCn 13:15 c Albumin 16-2 1.1 UNK 1.1-1.8 complet /Glob 013 ed SerPl-m 13:15 Rto Bilirub 16-2 0.6 0.2-1.0 complet 013 mg/dL ed SerPl-m 13:15 Cnc AST 16-2 21 U/L 15-37 complet SerPl-c 013 ed Cnc 13:15 ALT -16-2 34 U/L 30-65 complet SerPl-c 013 ed Cnc 13:15 ALP -16-2 91 U/L 50-136 complet SerPl-c 013 ed Cnc 13:15 CBC with AUTO DIFF (12-16-2012 13:15) WBC # 04-16-2 7.7 4.8-10. complet Bld 013 K/MM3 8 ed Auto 13:15 RBC # 04-16-2 4.62 4.2-5.4 complet Bld 013 M/mm3 ed Auto 13:15 Hgb -16-2 14.3 12.2-16 complet Bld-mCn 013 g/dL .2 ed c 13:15 Hct Fr 16-2 44.2 % 37.0-47 complet Bld 013 .0 ed 13:15 MCV RBC -16-2 95.6 fl 82.2-97 complet 013 .8 ed 13:15 MCH RBC -16-2 30.9 pg 27-31.2 complet Qn 013 ed Auto 13:15 MEAN -16-2 32.4 31.8-35 complet CORPUSC 013 g/dl .4 ed ULAR 13:15 HGB CONC RDW RBC -16-2 13.2 % 11.5-17 complet Auto 013 .5 ed 13:15 Platele -16-2 234 142-424 complet t Bld 013 K/mm3 ed Ql 13:15 Manual MEAN -16-2 7.0 fl 7.4-10. complet PLATELE 013 4 ed T 13:15 VOLUME Granulo -16-2 64.9 % 37.0-80 complet cytes 013 .0 ed Fr Bld 13:15 Auto LYMPH % 16-2 29.2 % 10-50.0 complet 013 ed 13:15 Monocyt 16-2 3.6 % 1.7-9.3 complet es Fr 013 ed Bld 13:15 Auto Eosinop 16-2 1.8 % 0.1-12. complet hil Fr 013 0 ed Bld 13:15 Auto Basophi 16-2 0.4 % 0.1-2.0 complet ls Fr 013 ed Bld 13:15 Auto Granulo 16-2 5.0 1.8-7.8 complet cytes # 013 K/mm3 ed Bld 13:15 Auto Lymphoc 16-2 2.3 0.7-4.5 complet ytes Fr 013 K/mm3 ed Bld 13:15 Auto Monocyt 16-2 0.3 0.1-1.0 complet es # 013 K/mm3 ed Bld 13:15 Auto Eosinop 16-2 0.1 0.0-0.4 complet hil # 013 K/mm3 ed Bld 13:15 Auto Basophi 16-2 0.0 0-0.2 complet ls # 013 K/MM3 ed Bld 13:15 Auto Encounters Encounter Start End Date Code Location Performer Type Date Emergency CHERELLE Sawyer MD (ER) 3 13:43 3 15:02 [facility]
--- OUTSIDE RECORDS SUMMARY | 2017-02-06 12:06 | External Medical Summary Rpt ---
Author Author , Organization [employer] Address Unknown Phone Unavailable Care Team Providers Care Beef Lugger Name Role Phone Sonny Law MD, Unavailable [...] Presence of 01-29-2017 cardiac pacemaker 285.9 Anemia [facility] 578.9 Upper [facility] hemorrhage [phone] Cholelithia Hawks sis without [facility] obstruction Allergies, Adverse Reactions, Alerts Type Drug [...] Sawyer MD (ER) 3 13:43 3 15:02 [facility]
--- OUTSIDE RECORDS SUMMARY | 2017-02-06 12:07 | External Medical Summary Rpt ---
Demographics Preferred Language Namibian Marital Status Unknown Faith Affiliation Unknown Race Unknown Ethnic Group Unknown Author Author , Organization [employer] Address Unknown Phone Unavailable Purpose Continuity of Care Document - through 2016 Immunization No patient found.
--- OUTSIDE RECORDS SUMMARY | 2017-02-06 12:07 | External Medical Summary Rpt ---
Author Author KYLEMATTIE Murdock, [employer] Organization [employer] Address Unknown Phone Unavailable Results Natriutietic peptide B [Mass/volume] in Serum or Plasma Observa Value Referen Units Interpr Notes Date tion ce etation Range Natriutie 0 - 100 pg/mL High No Feb 06 tic informati 2017 8:50 peptide B on in AM source [Mass/vol data ume] in Serum or Plasma Fibrin D-dimer FEU [Mass/volume] in Platelet poor plasma Observa Value Referen Units Interpr Notes Date tion ce etation Range Fibrin 0 - 400 ng/mL High Feb 06 D-dimer alert NOTIFICAT 2017 8:50 FEU ION AM [Mass/vol RESULT ume] in The Platelet D-Dimer poor values plasma are presented in units of mass(ng/m L) ofD-Dimer units(DDU ).This test has been FDA approved as an aid in the assessmen tand evaluatio n of suspected DIC, and thromboem bolic eventsinc luding PE and DVT. However, it does not have approvalf or cut-off values for the exclusion of these condition s. CBC W Auto Differential panel in Blood Observa Value Referen Units Interpr Notes Date tion ce etation Range Basophils 0 - 0.2 K/MM3 Normal No Feb 06 inform2016 8:50 [#/volume on in AM ] in source Blood by data Automated count Basophils 0.1 - 2.0 % Normal No Feb 06 informati 2016 8:50 leukocyte on in AM s in source Blood by data Automated count Eosinophi 0.0 - 0.4 K/mm3 Normal No Feb 06 ls informati 2016 8:50 [#/volume on in AM ] in source Blood by data Automated count Eosinophi 0.1 - % Normal No Feb 06 ls/100 12.0 informati 2016 8:50 leukocyte on in AM s in source Blood by data Automated count Granulocy 1.8 - 7.8 K/mm3 Normal No Feb 06 yodit informati 2016 8:50 [#/volume on in AM ] in source Blood by data Automated count Granulocy 37.0 - % Normal No Feb 06 yodit/100 80.0 informati 2016 8:50 leukocyte on in AM s in source Blood by data Automated count Hematocri 37.0 - % High No Feb 06 t [Volume 47.0 informati 2016 8:50 on in AM Fraction] source of Blood data Hemoglobi 12.2 - g/dL Normal No Feb 06 n 16.2 informati 2016 8:50 [Mass/vol on in AM ume] in source Blood data Lymphocyt 0.7 - 4.5 K/mm3 Normal No Feb 06 es informati 2017 8:50 [#/volume on in AM ] in source Unspecifi data ed specimen by Automated count Lymphocyt 10 - 50.0 % Normal No Feb 06 es informati 2016 8:50 [#/volume on in AM ] in source Unspecifi data ed specimen by Automated count Erythrocy 27 - 31.2 pg Normal No Feb 06 te mean informati 2016 8:50 corpuscul on in AM ar source hemoglobi data n [Entitic mass] Erythrocy 31.8 - g/dl Normal No Feb 06 te mean 35.4 informati 2017 8:50 corpuscul on in AM ar source hemoglobi data n concentra tion [Mass/vol ume] by Automated count Erythrocy 82.2 - fl Normal No Feb 06 te mean 97.8 informati 2016 8:50 corpuscul on in AM ar volume source [Entitic data volume] by Automated count Monocytes 0.1 - 1.0 K/mm3 Normal No Feb 06 informati 2016 8:50 [#/volume on in AM ] in source Blood by data Automated count Monocytes 1.7 - 9.3 % Normal No Jan 7 /100 informati 2017 8:50 leukocyte on in AM s in source Blood by data Automated count Platelet 7.4 - fl Low No Feb 06 mean 10.4 informati 2016 8:50 volume on in AM [Entitic source volume] data in Blood by Automated count Platelets 142 - 424 K/mm3 Normal No Jan 7 informati 2017 8:50 [#/volume on in AM ] in source Blood data Erythrocy 4.2 - 5.4 M/mm3 Normal No Feb 06 yodit informati 2017 8:50 [#/volume on in AM ] in source Amniotic data fluid Erythrocy 11.5 - % Normal No Jan 7 te 17.5 informati 2016 8:50 distribut on in AM ion width source [Entitic data volume] by Automated count Leukocyte 4.8 - K/MM3 Normal No Jan 7 s 10.8 informati 2016 8:50 [#/volume on in AM ] in source [...] 59- ML/MIN Low REFERENCE January 25 RANGE: 2016 5:32 glomerula >60 AM r ML/MIN/1. filtratio [...] - 9.3 % Normal No January 25 /100 informati 2016 5:32 leukocyte on in AM [...] 5.4 M/mm3 Normal No January 25 yodit 2016 5:32 [#/volume on in AM ] in source Amniotic data fluid Erythrocy 11.5 - % Normal No January 25 te 17.5 informati 2016 5:32 distribut on in AM ion width source [Entitic data volume] by Automated count Leukocyte 4.8 - K/MM3 Normal No January 25 s 10.8 2016 5:32 [#/volume on in AM ] in source Blood data Glucose [Mass/volume] in Capillary blood by Glucometer Observa Value Referen Units Interpr Notes Date tion ce etation Range Glucose 70 - 110 mg/dl Normal No January 24 [Mass/vol 2016 ume] in on in 10:03 PM [...] Mar 24 NE (<100 E informa informa 2015 ng/mL) tion in tion in 2:53 PM source source data data BUPRENO NEG NEGATIV No Normal No Mar 24 RPHINE (<10 E informa informa 2014 ng/mL) tion in tion in 2:53 PM source source data data
--- OUTSIDE RECORDS SUMMARY | 2017-02-06 12:07 | External Medical Summary Rpt ---
Demographics Preferred Language Malagasy Marital Status Unknown Holiness Affiliation Unknown Race Unknown Ethnic Group Unknown Author Author , Organization [employer] Address Unknown Phone Unavailable Purpose Continuity of Care Document - through 2016 Immunization No patient found.
[2017-02-06 13:30] VITALS: BP 153/48
--- NOTE | 2017-02-06 14:10 | PHARMACY CLINIC NOTE ---
Patient Demographics Patient Demographics Admission date: 02/06/17 Date: 02/06/17 Time: 1410 Allergies Coded Allergies: egg (From EGGS (FOOD/DRUG)) (Intermediate, NA-NAUSEA 02/06/17) cephalexin (From KEFLEX) (02/06/17) codeine (02/06/17) soy (02/06/17) HEIGHT- FT: 4 IN: 11.00 K.968 VTE General Information Labs: Laboratory Tests 02/06 0850 Hematology Hgb (12.2 - 16.2 g/dL) 15.0 Hct (37.0 - 47.0 %) 47.1 H Plt Count (142 - 424 K/mm3) 260 Disclaimer The following section includes nursing documentation that has been pulled in for pharmacy review. VTE prophylaxis NQF [id number] VTE prophylaxis ordered? Yes Type of prophylaxis/treatment: IRANNA at 1410
--- NOTE | 2017-02-06 14:10 | PHARMACY CLINIC NOTE ---
Patient Demographics Patient Demographics Admission date: 02/06/17 Date: 02/06/17 Time: 1410 Allergies Coded Allergies: egg (From EGGS (FOOD/DRUG)) (Intermediate, NA-NAUSEA 02/06/17) cephalexin (From KEFLEX) (02/06/17) codeine (02/06/17) soy (02/06/17) HEIGHT- FT: 4 IN: 11.00 K.968 VTE General Information Labs: Laboratory Tests 02/06 0850 Hematology Hgb (12.2 - 16.2 g/dL) 15.0 Hct (37.0 - 47.0 %) 47.1 H Plt Count (142 - 424 K/mm3) 260 Disclaimer The following section includes nursing documentation that has been pulled in for pharmacy review. VTE prophylaxis NQF [id number] VTE prophylaxis ordered? Yes Type of prophylaxis/treatment: RIANNA at 1410
[2017-02-06 15:02] VITALS: BP 153/48
[2017-02-06] MEDS ORDERED: COLACE GENERIC100 MG PO (15:18)
[2017-02-06] MEDS ORDERED: TYLENOL325 MG PO (15:28)
[2017-02-06] MEDS ORDERED: ULTRACET1 TAB PO (15:30)
[2017-02-06 16:00] VITALS: BP 147/58
[2017-02-06] MEDS ORDERED: PREDNISONE 10MG10 MG PO (17:26)
[2017-02-06] MEDS ORDERED: METOPROLOL 25 M25 MG PO (17:27)
[2017-02-06] MEDS ORDERED: ISOSORBIDE MONO60 MG PO (17:27)
[2017-02-06] MEDS ORDERED: ZOFRAN4 MG PO (17:27)
[2017-02-06] MEDS ORDERED: MACROBID100 M3 PO (17:28)
--- NOTE | 2017-02-06 17:41 | HISTORY AND PHYSICAL REPORT ---
History and Physical ([facility]CA) Date of admission: 02/06/17 Chief complaint: chest pain History: History of Present Illness: Ms. Eric is an 89yo female who was just recently admitted and discharged [facility] after a nondisplaced fracture of her first cervical vertebrae. She began having chest pain this morning at the assisted. It did not radiate anywhere and she described it as a pain moderate in severity. She denies any cough, nausea or shortness of breath. She is currently wearing a neck collar d/ t her recent fx. She was admitted for further evaluation and treatment. She states she was given 2 tylenol and the pain has resolved and not returned. Past Medical History: Medical History: CAD? Yes Angina: No CT: No Hypertension? Yes Hyperlipidemia? Yes CHF? No DVT? No PE? No COPD? No Asthma? No Anemia? No GERD? No Gastric ulcers? Yes GI Bleed? No Hernia? No Thyroid Problems? Yes Hypothyroidism? No CVA? Yes Seizures? No Diabetes? No Renal Insuffiency? No UTI? Yes Stones? No BPH? No GB Disease: Yes Nephritic Syndrome? No Asplenia? No Hepatitis? No Sickle Cell Disease? No Arthritis? Yes Migraines? No Cataracts? Yes Glaucoma? No MRSA? No HIV? No TB? No Anxiety? Yes Depression? Yes Cancer? No More? Yes Additional hx: 1. RHEUMATOID ARTHRITIS, 2. PARTIAL THYROIDECTOMY 3. LEFT BBB 4. DEGENERATIVE DISC DISEASE 5. SPINAL STENOSIS 6. PAIN PUMP Surgical history: Previous Surgery?Y JUAN THYROID TUMOR SPINAL SURGERY PAIN PUMP PLACEMENT RIGHT KNEE REPLACEMENT CARDIAC STENT-2011 PACEMAKER ANNA LUMPECTOMY IN BREAST Medications: Active Scripts MAGNESIUM OXIDE (Magnesium Oxide) 400 MG PO BID #60 Ref 2 Prov: 07/25/11 Reported Medications Nitroglycerin (Nitrostat 0.4MG (1/150 Gr) Tabs #25) 0.4 MG SL [id number] Lisinopril 2.5 MG PO DAILY OMEGA-3 FATTY ACIDS/FISH OIL (Fish Oil 1,000 MG Capsule) 1,000 MG PO DAILY Prednisone (Prednisone 10MG) 5 MG PO DAILY ONDANSETRON HCL (Zofran 4MG Tab) 4 MG PO Q8HP PRN NAUSEA AND VOMITING Metoprolol Tartrate (Metoprolol 25MG) 12.5 MG PO BID Isosorbide Dinitrate 30 MG PO DAILY NITROFURANTOIN MONOHYD/M-CRYST (Macrobid 100 MG Capsule) 100 MG PO BID Citalopram Hydrobromide (Citalopram HBr) 10 MG PO DAILY #30 TRIAMTERENE/HYDROCHLOROTHIAZID (Triamterene-Hctz 75-50 MG Tab) 0.5 TAB PO Q48H #15 Metolazone 2.5 MG PO Q48H #30 Estradiol (Estrace) 0.1 MG VG 3 TIMES/WK #43 Gabapentin (Gabapentin 100MG) 100 MG PO TID #90 Docusate Sodium (Colace 100MG Cap) 100 MG PO DAILY Acetaminophen (Tylenol) 325 MG PO PRN PRN PAIN TRAMADOL HCL/ACETAMINOPHEN (Ultracet Tablet) 1 TAB PO PRN PRN PAIN Allergies: Coded Allergies: egg (From EGGS (FOOD/DRUG)) (Intermediate, NA-NAUSEA 02/06/17) cephalexin (From KEFLEX) (02/06/17) codeine (02/06/17) soy (02/06/17) Family History: Family history: Postive for: CAD, HTN, hyperlipidemia. Social History: Smoking Hx Tobacco: No Smoker: Never Smoker Type: N/A Packs/day: N/A Are you exposed to second hand No Alcohol: Alcohol: No Hx of Drug Use: Drug Use? No Review of Systems: Constitutional No: fatigue, lethargy, malaise, weak. ENT No: nasal congestion, sore throat. Cardiovascular Positive for: chest pain. No: edema, palpitations. Respiratory No: shortness of air, productive cough (sputum), wheezing. GI No: abdominal pain, diarrhea, nausea, vomitting. (female) No: frequency, hematuria. Neurological Positive for: headache, weakness. No: dizziness, syncope. Musculoskeletal Positive for: joint pain (neck). No: extremity pain, myalgias. Physical Exam: Vital signs: 1ST Vital Signs Result Date Time Pulse Ox 98 02/06 0845 B/P 150/68 02/06 0845 Temp 98.1 02/06 0845 Pulse 56 02/06 0845 Resp 20 02/06 0845 O2 Delivery ROOM AIR 02/06 1330 Exam: General appearance: alert, awake, no acute distress Eyes: EOM's w/normal ROM, PERRLA ENT: mucous membranes moist, nose normal, pharynx normal Neck: neck collar in place Cardiovascular: regular rate & rhythm Respiratory: clear to auscultation ABD: non-distended, normal bowel sounds, no rebound, soft, no tenderness, no guarding Extremities: no peripheral edema Musculoskeletal: equal muscle strength, motor intact, sensation intact Skin: normal color Neuro: normal mood/affect, oriented, speech clear Lab data: Labs: Laboratory Tests 02/06/17 1605: Creatine Kinase 53, CK-MB (CK-2) Rel Index 3.6, CK and CKMB Interp 1.9, Troponin I < 0.02 02/06/17 1244: Creatine Kinase 45, CK-MB (CK-2) Rel Index 4.2 H, CK and CKMB Interp 1.9, Troponin I < 0.02 02/06/17 0850: B-Natriuretic Peptide 177 H 02/06/17 0850: Sodium 138, Potassium 4.2, Chloride 100, Carbon Dioxide 32, BUN 30 H, Creatinine 1.1 H, Estimated Creat Clear 32 L, Estimated GFR (MDRD) 47 L, Glucose 95, Calcium 9.5, Total Bilirubin 0.7, AST 15, ALT 25, Alkaline Phosphatase 66, Creatine Kinase 53, CK-MB (CK-2) Rel Index 4.2 H, CK and CKMB Interp 2.2, Troponin I < 0.02, Total Protein 7.1, Albumin 3.6, Globulin 3.5 H, Albumin/Globulin Ratio 1.0 L, D-Dimer 955 *H, WBC 8.4, RBC 4.92, Hgb 15.0, Hct 47.1 H, MCV 95.6, RDW 13.1, Plt Count 260, MPV 6.3 L, Gran % 56.9, Gran # 4.8, Lymphocytes % 35.3, Monocytes % 5.8, Eosinophils % 1.7, Basophils % 0.4, Lymphocytes # 3.0, Monocytes # 0.5, Eosinophils # 0.1, Basophils # 0.0, PUBS MCHC 31.8, MCH 30.4 Radiology results: Results: CXR - Cardiomegaly with pacemaker present. No change with no acute finding Chest CT - 1. No evidence of pulmonary embolus or aortic aneurysm. 2. COPD. No acute finding. 3. Small hiatal hernia. 4. Coronary artery disease Diagnosis(es): 1. Chest pain Status: Acute 2. Elevated d-dimer Status: Acute 3. Hypertension Status: Chronic 4. Coronary artery disease Status: Chronic 5. LBBB (left bundle branch block) Plan: Pt is getting serial enzymes. Troponin I has been negative so far. D-dimer was elevated but CTA did not show a PE. Will continue most of her home medications. Will discuss case with Dr. Law to see if he would like to consult cardiology. at [phone]
[2017-02-06 20:00] VITALS: BP 144/78
[2017-02-06 20:30] VITALS: BP 144/78
[2017-02-07 00:27] VITALS: BP 179/74
[2017-02-07 03:40] VITALS: BP 169/55
[2017-02-07 07:12] LABS: HEMOGLOBIN 16.2 g/dL (12.2-16.2); LYMPH # 1.6 K/mm3 (0.7-4.5); LYMPH % 17.9 % (10-50.0)
[2017-02-07 08:03] VITALS: BP 169/55
--- NOTE | 2017-02-07 08:15 | ACUTE CARE PROGRESS NOTE (QUA) ---
See Addendum Progress Notes Subjective Date 02/07/17 Time 0813 Note Pt states she has had no more CP since admission. She is having pain in her neck and back. She slept off and on. She is eating well. Objective Findings Last VS-Temp:98.5 B/P:169/55 Pulse:56 Resp:18 SaO2:96 ROOM AIR Last weight lbs:139 oz:2 K.107 Method:Bed Scales Laboratory Tests 02/07/17 0615: Sodium 138, Potassium 3.8, Chloride 101, Carbon Dioxide 30, BUN 26 H, Creatinine 1.0, Estimated Creat Clear 38 L, Estimated GFR (MDRD) 52 L, Glucose 89, Calcium 9.4, WBC 9.0, RBC 5.34, Hgb 16.2, Hct 51.3 H, MCV 96.2, RDW 13.2, Plt Count 240, MPV 6.4 L, Gran % 75.1, Gran # 6.7, Lymphocytes % 17.9, Monocytes % 5.4, Eosinophils % 1.1, Basophils % 0.4, Lymphocytes # 1.6, Monocytes # 0.5, Eosinophils # 0.1, Basophils # 0.0, PUBS MCHC 31.5 L, MCH 30.3 02/06/17 1900: Creatine Kinase 50, CK-MB (CK-2) Rel Index 4.0, CK and CKMB Interp 2.0, Troponin I < 0.02 02/06/17 1605: Creatine Kinase 53, CK-MB (CK-2) Rel Index 3.6, CK and CKMB Interp 1.9, Troponin I < 0.02 02/06/17 1244: Creatine Kinase 45, CK-MB (CK-2) Rel Index 4.2 H, CK and CKMB Interp 1.9, Troponin I < 0.02 02/06/17 0850: B-Natriuretic Peptide 177 H 02/06/17 0850: Sodium 138, Potassium 4.2, Chloride 100, Carbon Dioxide 32, BUN 30 H, Creatinine 1.1 H, Estimated Creat Clear 32 L, Estimated GFR (MDRD) 47 L, Glucose 95, Calcium 9.5, Total Bilirubin 0.7, AST 15, ALT 25, Alkaline Phosphatase 66, Creatine Kinase 53, CK-MB (CK-2) Rel Index 4.2 H, CK and CKMB Interp 2.2, Troponin I < 0.02, Total Protein 7.1, Albumin 3.6, Globulin 3.5 H, Albumin/Globulin Ratio 1.0 L, D-Dimer 955 *H, WBC 8.4, RBC 4.92, Hgb 15.0, Hct 47.1 H, MCV 95.6, RDW 13.1, Plt Count 260, MPV 6.3 L, Gran % 56.9, Gran # 4.8, Lymphocytes % 35.3, Monocytes % 5.8, Eosinophils % 1.7, Basophils % 0.4, Lymphocytes # 3.0, Monocytes # 0.5, Eosinophils # 0.1, Basophils # 0.0, PUBS MCHC 31.8, MCH 30.4 Exam General appearance: alert, awake, no acute distress Neck: neck collar in place Cardiovascular: regular rate & rhythm Respiratory: clear to auscultation ABD: non-distended, normal bowel sounds, no rebound, soft, no tenderness, no guarding Extremities: no peripheral edema Assessment/Plan Problem List 1. Chest pain Status: Acute 2. Elevated d-dimer Status: Acute 3. Hypertension Status: Chronic 4. Coronary artery disease Status: Chronic 5. LBBB (left bundle branch block) Plan: Cardiac enzymes have all been negative. May be able to be discharged today. Will discuss with Dr. Law. This inpt stay is expected to cross 2 MNs from start of care No at 0815 at 0824
[2017-02-07 08:39] VITALS: BP 125/57
--- NOTE | 2017-02-07 08:51 | DISCHARGE SUMMARY STANDARD ---
Discharge Summary (FCA2) Date of admission: 02/06/17 Date of discharge: 02/07/17 Problem List: 1. Chest pain 2. Elevated d-dimer 3. Hypertension 4. Coronary artery disease 5. LBBB (left bundle branch block) History of present illness: Ms. Eric is an 89yo female who was just recently admitted and discharged [facility] after a nondisplaced fracture of her first cervical vertebrae. She began having chest pain yesterday morning at the senior care. It did not radiate anywhere and she described it as a pain moderate in severity. She denied any cough, nausea or shortness of breath. She was wearing a neck collar d/t her recent fx. She was admitted for further evaluation and treatment. She stated she was given 2 tylenol and the pain resolved and did not return. Exam on admission: General appearance: alert, awake, no acute distress Eyes: EOM's w/normal ROM, PERRLA ENT: mucous membranes moist, nose normal, pharynx normal Neck: neck collar in place Cardiovascular: regular rate & rhythm Respiratory: clear to auscultation ABD: non-distended, normal bowel sounds, no rebound, soft, no tenderness, no guarding Extremities: no peripheral edema Musculoskeletal: equal muscle strength, motor intact, sensation intact Skin: normal color Neuro: normal mood/affect, oriented, speech clear Hospital Course: The patient was admitted overnight. Her cardiac enzymes were all normal and her pain resolved with 2 tylenol. It was felt the pain may have been caused from her neck collar resting on her chest. She had a CTA of the chest d/t elevated D -dimer and it showed no PE. She is stable to be discharged back to [facility] for continued rehab. She will remain on all of the medications she was previously taking and will f/u with Dr. Law at the senior care. Discharge medications: Continue taking these medications: Nitroglycerin (Nitrostat 0.4MG (1/150 Gr) Tabs #25) 0.4 MG TAB.SUBL 0.4 MILLIGRAM SUBLINGUAL EVERY FIVE MINUTES NEEDED Lisinopril (Lisinopril) 5 MG TABLET 2.5 MILLIGRAM ORAL DAILY MAGNESIUM OXIDE (Magnesium Oxide) 400 MG TABLET 400 MILLIGRAM ORAL TWICE A DAY Qty = 60 OMEGA-3 FATTY ACIDS/FISH OIL (Fish Oil 1,000 MG Capsule) 340 MG-1,000 MG CAPSULE 1,000 MILLIGRAM ORAL DAILY Citalopram Hydrobromide (Citalopram HBr) 10 MG TABLET 10 MILLIGRAM ORAL DAILY Qty = 30 TRIAMTERENE/HYDROCHLOROTHIAZID (Triamterene-Hctz 75-50 MG Tab) 1 EACH TABLET 1 TABLET ORAL EVERY 48 HOURS Metolazone (Metolazone) 2.5 MG TABLET 2.5 MILLIGRAM ORAL EVERY 48 HOURS Qty = 30 Comments: TAKE ONE TABLET BY MOUTH EVERY OTHER DAY NEEDED - SIG Obtained From [facility] Estradiol (Estrace) 42.5 GM CREAM.APPL 0.1 MILLIGRAM VAGINAL 3 TIMES/WK Qty = 43 Gabapentin (Gabapentin 100MG) 100 MG CAPSULE 100 MILLIGRAM ORAL THREE TIMES A DAY Qty = 90 Docusate Sodium (Colace 100MG Cap) 100 MG CAPSULE 100 MILLIGRAM ORAL DAILY NEEDED as needed for STOOL SOFTENER Acetaminophen (Tylenol) 325 MG TABLET 325 MILLIGRAM ORAL FOUR TIMES A DAY NEEDED as needed for PAIN TRAMADOL HCL/ACETAMINOPHEN (Ultracet Tablet) 1 EACH TABLET 1 TABLET ORAL FOUR TIMES A DAY NEEDED as needed for PAIN Prednisone (Prednisone 10MG) 10 MG TABLET 10 MILLIGRAM ORAL DAILY Metoprolol Tartrate (Metoprolol 25MG) 25 MG TABLET 25 MILLIGRAM ORAL TWICE A DAY ISOSORBIDE MONONITRATE (Isosorbide Mononitrate ER) 60 MG TAB.ER.24H 60 MILLIGRAM ORAL DAILY Disposition: f/u with: Don Law MD Follow up: 7 DAYS Activity: Cont Current activity Diet: Continue same diet Discharge to: [facility]ILL[facility]URSING Specify Nsg Home: [facility] at 0879
--- NOTE | 2017-02-07 08:51 | DISCHARGE SUMMARY STANDARD ---
Discharge Summary (FCA2) Date of admission: 02/06/17 Date of discharge: 02/07/17 Problem List: 1. Chest pain 2. Elevated d-dimer 3. Hypertension 4. Coronary artery disease 5. LBBB (left bundle branch block) History of present illness: Ms. Eric is an 89yo female who was just recently admitted and discharged to [facility] after a nondisplaced fracture of her first cervical vertebrae. She began having chest pain yesterday morning at the [facility]. It did not radiate anywhere and she described it as a pain moderate in severity. She denied any cough, nausea or shortness of breath. She was wearing a neck collar d/t her recent fx. She was admitted for further evaluation and treatment. She stated she was given 2 tylenol and the pain resolved and did not return. Exam on admission: General appearance: alert, awake, no acute distress Eyes: EOM's w/normal ROM, PERRLA ENT: mucous membranes moist, nose normal, pharynx normal Neck: neck collar in place Cardiovascular: regular rate & rhythm Respiratory: clear to auscultation ABD: non-distended, normal bowel sounds, no rebound, soft, no tenderness, no guarding Extremities: no peripheral edema Musculoskeletal: equal muscle strength, motor intact, sensation intact Skin: normal color Neuro: normal mood/affect, oriented, speech clear Hospital Course: The patient was admitted overnight. Her cardiac enzymes were all normal and her pain resolved with 2 tylenol. It was felt the pain may have been caused from her neck collar resting on her chest. She had a CTA of the chest d/t elevated D -dimer and it showed no PE. She is stable to be discharged back to [facility] for continued rehab. She will remain on all of the medications she was previously taking and will f/u with Dr. Law at the [facility]. Discharge medications: Continue taking these medications: Nitroglycerin (Nitrostat 0.4MG (1/150 Gr) Tabs #25) 0.4 MG TAB.SUBL 0.4 MILLIGRAM SUBLINGUAL EVERY FIVE MINUTES NEEDED Lisinopril (Lisinopril) 5 MG TABLET 2.5 MILLIGRAM ORAL DAILY MAGNESIUM OXIDE (Magnesium Oxide) 400 MG TABLET 400 MILLIGRAM ORAL TWICE A DAY Qty = 60 OMEGA-3 FATTY ACIDS/FISH OIL (Fish Oil 1,000 MG Capsule) 340 MG-1,000 MG CAPSULE 1,000 MILLIGRAM ORAL DAILY Citalopram Hydrobromide (Citalopram HBr) 10 MG TABLET 10 MILLIGRAM ORAL DAILY Qty = 30 TRIAMTERENE/HYDROCHLOROTHIAZID (Triamterene-Hctz 75-50 MG Tab) 1 EACH TABLET 1 TABLET ORAL EVERY 48 HOURS Metolazone (Metolazone) 2.5 MG TABLET 2.5 MILLIGRAM ORAL EVERY 48 HOURS Qty = 30 Comments: TAKE ONE TABLET BY MOUTH EVERY OTHER DAY NEEDED - SIG Obtained From [facility] Estradiol (Estrace) 42.5 GM CREAM.APPL 0.1 MILLIGRAM VAGINAL 3 TIMES/WK Qty = 43 Gabapentin (Gabapentin 100MG) 100 MG CAPSULE 100 MILLIGRAM ORAL THREE TIMES A DAY Qty = 90 Docusate Sodium (Colace 100MG Cap) 100 MG CAPSULE 100 MILLIGRAM ORAL DAILY NEEDED as needed for STOOL SOFTENER Acetaminophen (Tylenol) 325 MG TABLET 325 MILLIGRAM ORAL FOUR TIMES A DAY NEEDED as needed for PAIN TRAMADOL HCL/ACETAMINOPHEN (Ultracet Tablet) 1 EACH TABLET 1 TABLET ORAL FOUR TIMES A DAY NEEDED as needed for PAIN Prednisone (Prednisone 10MG) 10 MG TABLET 10 MILLIGRAM ORAL DAILY Metoprolol Tartrate (Metoprolol 25MG) 25 MG TABLET 25 MILLIGRAM ORAL TWICE A DAY ISOSORBIDE MONONITRATE (Isosorbide Mononitrate ER) 60 MG TAB.ER.24H 60 MILLIGRAM ORAL DAILY Disposition: f/u with: Don Law MD Follow up: 7 DAYS Activity: Cont Current activity Diet: Continue same diet Discharge to: [facility] Specify Nsg Home: [facility] at 0854
[2017-02-07 11:17] VITALS: BP 125/57
== END 2017-02-07 10:40 ==
LOC: ER 08:44 → 2ND 11:55
PROVIDERS: Emergency Medicine
DX: R07.9 Chest pain, unspecified (principal); I44.7 Left bundle-branch block, unspecified; I25.10 Atherosclerotic heart disease of native coronary artery without angina pectoris; R06.00 Dyspnea, unspecified
CPT/HCPCS: G0378; Q9967